=== PATIENT | female | born 2000 | race Caucasian/White ===

== ENCOUNTER 2019-01-01 11:58 | Emergency (ER) | payer SELFPAY ==
[~2019-01-01] VITALS: Ht 170.2 cm; Wt 99.8 kg
--- NOTE | 2019-01-01 12:17 | ED GU-Female ---
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 PT STATES SHE GOES THROUGH 1-2 PAD PER DAY. PT STATES SHE STOPPED TAKING HER CONTROL 2 MONTHS AGO DUE TO LACK OF INSURANCE. PT DENIES EVER HAVING A PAP SMEAR OR APPOINTMENT WITH AN OBGYN. PT UNSURE IF SHE IS AND IS SEXUALLY ACTIVE. Source: patient Exam Limitations: no limitations History of Present Illness Date Seen by Provider: Jan 01, 2019 Time Seen by Provider: 12:13 Initial Comments To ER by private vehicle with reports of vaginal bleeding for 3 months. She uses 2 pads per day. This began one month after stopping her oral control pill. She stopped that because she ran out of the prescription. She is from [facility] and intends to go back there upon discharge. She does not have any abdominal pain, cramping or other vaginal discharge. No fevers chills or dysuria. Timing/Duration: other Severity/Quality: mild Location: unknown Radiation: none Activities at Onset: none Prior Genitourinary Problems: none Associated Symptoms: denies symptoms Allergies and Home Medications Patient Home Medication List Home Medication List Reviewed: Yes Review of Systems Review of Systems Constitutional: see HPI EENTM: see HPI Respiratory: no symptoms reported Cardiovascular: no symptoms reported Genitourinary: see HPI Musculoskeletal: no symptoms reported Skin: no symptoms reported Psychiatric/Neurological: No Symptoms Reported Past Wuifsbq-Bgyvar-Peyhiu Hx Patient Social History Alcohol Use: Denies Use Recreational Drug Use: No Smoking Status: Current Everyday Smoker 2nd Hand Smoke Exposure: Yes Recent Foreign Travel: No Contact w/Someone Who Travel: No Recent Hopitalizations: No Physical Abuse: No Sexual Abuse: No Mistreated: No Fear: No Seasonal Allergies Seasonal Allergies: No Past Medical History Surgeries: No Respiratory: No Cardiac: No Neurological: No Genitourinary: No Gastrointestinal: No Musculoskeletal: No Endocrine: No HEENT: No Cancer: No Psychosocial: No Integumentary: No Physical Exam Vital Signs Vital Signs - First Documented 01/01/19 12:06 Temp 97.6 Pulse 76 Resp 18 B/P (MAP) 115/76 Capillary Refill : Height, Weight, BMI Height: 5'7.00" Weight: 220lbs. oz. 99.769723ov; 28.12 BMI Method: General Appearance: WD/WN, no apparent distress Neck: non-tender, full range of motion Respiratory: no respiratory distress, no accessory muscle use Neurologic/Psychiatric: alert, normal mood/affect, oriented x 3 Skin: normal color, warm/dry Progress/Results/Core Measures Suspected Sepsis SIRS Temperature:97.6 Pulse: Respiratory Rate: Blood Pressure / Mean: Results/Orders My Orders Orders - MAYNOR LATIF APRN Cbc With Automated Diff (01/01/19 12:12) Urine Bedside (01/01/19 12:12) Ua Culture If Indicated (01/01/19 12:12) Vital Signs/I&O 01/01/19 12:06 Temp 97.6 Pulse 76 Resp 18 B/P (MAP) 115/76 Capillary Refill : Departure Impression Primary Impression: Vaginal bleeding Disposition: HOME, SELF-CARE Condition: Stable Departure-Patient Inst. Decision time for Depature: 12:16 Referrals: NO,LOCAL PHYSICIAN (PCP) Primary Care Physician Patient Instructions: IRREGULAR VAGINAL BLEEDING Add. Discharge Instructions: 1. Follow-up with your stove mounter. All discharge instructions reviewed with patient and/or family. Voiced understanding. Scripts Norgestimate-Ethinyl Estradiol (Sprintec 28 Day Tablet) 1 Each Tablet 1 EACH PO DAILY, #1 PKT Prov: MAYNOR LATIF APRN 01/01/19 MAYNOR LATIF APRN Jan 01, 2019 12:17
[2019-01-01] MEDS ORDERED: NORG1TAB14 PO (12:19)
[2019-01-01 12:31] LABS: BASOPHILS % (AUTO) 0 % (0-10); EOSINOPHILS # (AUTO) 0.1 10^3/uL (0.0-0.3); EOSINOPHILS % (AUTO) 1 % (0-10); HEMATOCRIT 42 % (35-52); HEMOGLOBIN 14.1 G/DL (11.5-16.0); LYMPHOCYTES # (AUTO) 2.7 X 10^3 (1.0-4.0); LYMPHOCYTES % (AUTO) 42 % (12-44); MEAN CORPUSCULAR HEMOGLOBIN 29 PG (25-34); MEAN CORPUSCULAR HGB CONC 34 G/DL (32-36); MEAN CORPUSCULAR VOLUME 84 FL (80-99); MEAN PLATELET VOLUME 10.2 FL (7.4-10.4); MONOCYTES # (AUTO) 0.4 X 10^3 (0.0-1.0); MONOCYTES % (AUTO) 6 % (0-12); NEUTROPHILS # (AUTO) 3.2 X 10^3 (1.8-7.8); NEUTROPHILS % (AUTO) 50 % (42-75); PLATELET COUNT 231 10^3/uL (130-400); WHITE BLOOD COUNT 6.4 10^3/uL (4.3-11.0)
[2019-01-01 12:32] LABS: BILIRUBIN,URINE NEGATIVE (NEGATIVE); CLARITY,URINE CLEAR; COLOR,URINE YELLOW; GLUCOSE, URINE (UA) NEGATIVE (NEGATIVE); KETONES,URINE NEGATIVE (NEGATIVE); LEUKOCYTE ESTERASE ,URINE NEGATIVE (NEGATIVE); NITRITE,URINE NEGATIVE (NEGATIVE); PH,URINE 5 (5-9); PROTEIN,URINE NEGATIVE (NEGATIVE); UROBILINOGEN,URINE NORMAL (NORMAL)
[2019-01-01 12:40] LABS: BACTERIA,URINE TRACE /HPF; RBC,URINE 25-50 /HPF; WBC,URINE RARE /HPF
== END 2019-01-01 12:57 | disposition home or self-care (01) ==
LOC: ER 11:59
DX: N93.9 Abnormal uterine and vaginal bleeding, unspecified (principal); F17.200 Nicotine dependence, unspecified, uncomplicated; Z91.14 Patient's other noncompliance with medication regimen
CPT/HCPCS: 36415; 81000; 84703; 85025; 99282

== ENCOUNTER 2020-12-20 19:12 | Emergency (ER) | payer SELFPAY ==
[~2020-12-20] VITALS: Ht 167 cm; Wt 100.0 kg
[~2020-12-20 19:12] MED LIST: NORG1TAB14 PO
[2020-12-20] MEDS ORDERED: SULF1TAB38 PO (19:39)
--- NOTE | 2020-12-20 19:39 | ED Integumentary General ---
General Chief Complaint: Skin/Wound Problems Stated Complaint: R ARM SWOLLEN Nursing Triage Note: THE PT IS AMBULATORY TO THE ROOM WITHOUT DIFFICULTY. NO DISTRESS IS SEEN ON ARRIVAL. LOC IS NORMAL FOR THE PT. THE PT C/O OF AN ABSCESS UNDER HER RIGHT ARM. Source: patient Exam Limitations: no limitations (ROBERT BARRERA APRN) History of Present Illness Date Seen by Provider: Dec 20, 2020 Time Seen by Provider: 19:20 Initial Comments This is a 20 yo female who presented to ED with c/o cyst under her right axillae x3 days. Has attempted to "pop" cyst but has been unable. Reports swelling and pain. No redness, warmth, or drainage. No fever, chills, cough, nausea, vomiti ng. (ROBERT BARRERA APRN) Allergies and Home Medications Allergies Uncoded Allergies: PCN (Allergy, Unknown, 12/20/20) Home Medications Norgestimate-Ethinyl Estradiol 1 Each Tablet, 1 EACH PO DAILY Prescribed by: MAYNOR LATIF on 01/01/19 1219 Sulfamethoxazole/Trimethoprim 1 Each Tablet, 7 EACH PO BID Prescribed by: ROBERT BARRERA on 12/20/20 193 Patient Home Medication List Home Medication List Reviewed: Yes (ROBERT BARRERA APRN) Review of Systems Review of Systems Constitutional: no symptoms reported EENTM: no symptoms reported Respiratory: no symptoms reported Cardiovascular: no symptoms reported Gastrointestinal: no symptoms reported Genitourinary: no symptoms reported LMP: Nov 30, 2020 Musculoskeletal: see HPI Skin: see HPI Psychiatric/Neurological: Anxiety Endocrine: No Symptoms Reported Hematologic/Lymphatic: No Symptoms Reported (ROBERT BARRERA APRN) Past Qycxtyg-Kwhvvi-Thxrbe Hx Seasonal Allergies Seasonal Allergies: No (ROBERT BARRERA APRN) Past Medical History Surgeries: No Respiratory: No Cardiac: No Neurological: No Genitourinary: No Gastrointestinal: No Musculoskeletal: No Endocrine: No HEENT: No Cancer: No Psychosocial: No Integumentary: No (ROBERT BARRERA APRN) Physical Exam Vital Signs Vital Signs - First Documented 12/20/20 19:22 Temp 37.2 Pulse 107 Resp 18 B/P (MAP) 134/97 (109) Pulse Ox 97 (REX ALFREDO MD) Vital Signs Capillary Refill : Less Than 3 Seconds (ROBERT BARRERA [employer]S BROKERAGE MANAGER) General Appearance: WD/WN, no apparent distress HEENT: PERRL/EOMI, normal ENT inspection Neck: full range of motion, normal inspection Cardiovascular: regular rate, rhythm, no murmur Respiratory: lungs clear, normal breath sounds Gastrointestinal: normal bowel sounds, non tender, soft Extremities: normal range of motion Neurologic/Psychiatric: no motor/sensory deficits, alert, normal mood/affect, oriented x 3 Skin: normal color, warm/dry Skin Problem Location: other (right axilla) Skin Problem Character: other (6hth2pc area of induration, no fluctuance appreciated. No erythema or warmth. No discharge. ) Lymphatic: no adenopathy; No axilla node tender (R), No axilla node tender (L) (ROBERT BARRERA APRN) Progress/Results/Core Measures Results/Orders Vital Signs/I&O 12/20/20 12/20/20 19:22 19:43 Temp 37.2 Pulse 107 100 Resp 18 16 B/P (MAP) 134/97 (109) 130/90 Pulse Ox 97 99 (REX ALFREDO MD) Blood Pressure Mean: 109 Departure Impression Primary Impression: Axillary abscess Disposition: 01 HOME, SELF-CARE Condition: Stable Departure-Patient Inst. Decision time for Depature: 19:36 (ROBERT BARRERA [employer] BROKERAGE MANAGER) Referrals: NO,LOCAL PHYSICIAN (PCP) Primary Care Physician Patient Instructions: Skin Abscess Add. Discharge Instructions: Plan: 1. May use Tylenol or Ibuprofen as needed for pain. 2. Take Bactrim twice a day as directed and complete full course even if you begin to feel better. 3. Wash area twice a day with mild soap and water. Avoid shaving and using deodorant under right arm while healing. 4. Follow up with your doctor if your symptoms persist. 5. Return to ER for any new, concerning, or worsening symptoms. All discharge instructions reviewed with patient and/or family. Voiced understanding. Scripts Sulfamethoxazole/Trimethoprim (Bactrim Ds Tablet) 1 Each Tablet 7 EACH PO BID for 7 Days, #14 TAB 0 Refills Prov: ROBERT BARRERA APRN 12/20/20 ATTENDING PHYSICIAN NOTE: I was physically present as attending physician in the emergency department during the care of this patient, but I was not directly involved in the decision making or delivery of care for this patient. (REX ALFREDO MD) ROBERT BARRERA APRN Dec 20, 2020 19:39 REX ALFREDO MD Dec 22, 2020 07:36
[2020-12-20 19:43] VITALS: BP 130/90
[2020-12-20] MEDS ORDERED: TRIM/SULFAMETH 160/800 (SEPTRA DS) TAB PO ONE (19:45)
== END 2020-12-20 19:45 | disposition home or self-care (01) ==
LOC: EDUNIT# 19:12 → ER 19:15
DX: L02.411 Cutaneous abscess of right axilla (principal)
CPT/HCPCS: 99283

== ENCOUNTER 2021-11-07 18:02 | Emergency (ER) | payer MEDICAID ==
[~2021-11-07 18:02] MED LIST changes: +SULF1TAB38 PO
[2021-11-07 18:29] VITALS: BP 136/98
[2021-11-07] MEDS ORDERED: NAPR-915 PO ×2 (18:39→18:45)
[2021-11-07] MEDS ORDERED: CLIN-144 PO ×2 (18:39→18:45)
--- NOTE | 2021-11-07 18:40 | ED EENT ---
History of Present Illness General Stated Complaint: LEFT TOOTH PAIN Source: patient Exam Limitations: no limitations (MERLE VILLAR) History of Present Illness Date Seen by Provider: Nov 07, 2021 Time Seen by Provider: 18:34 Initial Comments Patient is a 21-year-old female who presents ED with left lower dental pain. She states pain started about 3 days ago. Described as a sharp pain that radiates to the left ear and left neck. She has been taking ibuprofen at home without much improvement of her pain. She states she fractured her left lower tooth a while back secondary to eating. She has had some intermittent pain periodically but not as severe as today. She denies of any facial swelling or redness, fever, sore throat, vomiting, ear pain, cough shortness of breath. She has not followed up with a dentist for this pain in the past. Patient is allergic to penicillins. (MERLE VILLAR) Allergies and Home Medications Allergies Uncoded Allergies: PCN (Allergy, Unknown, 12/20/20) Patient Home Medication List Home Medication List Reviewed: Yes (MERLE VILLAR) Clindamycin HCl (Clindamycin HCl) 300 Mg Capsule, 300 MG PO QID Prescribed by: HERMINIA BURNHAM on 11/07/211844 Naproxen (Naproxen) 500 Mg Tablet, 500 MG PO Q12H Prescribed by: HERMINIA BURNHAM on 11/07/211844 Norgestimate-Ethinyl Estradiol (Sprintec 28 Day Tablet) 1 Each Tablet, 1 EACH PO DAILY Prescribed by: MAYNOR LATIF on 01/01/19 1219 Sulfamethoxazole/Trimethoprim (Bactrim Ds Tablet) 1 Each Tablet, 7 EACH PO BID Prescribed by: ROBERT BARRERA on 12/20/20 193 Review of Systems Review of Systems Constitutional: No chills, No diaphoresis Eyes: Denies Blurred Vision, Denies Drainage, Denies Decreased Acuity Ears: Denies Dizziness, Denies Pain Nose: denies clots, denies congestion Mouth: denies clots; loose teeth, other (dental pain) Respiratory: No cough, No short of breath, No wheezing Gastrointestinal: No abdominal pain, No diarrhea, No nausea, No vomiting Musculoskeletal: No back pain, No joint pain Neurological: Denies Anxiety, Denies Depressed (MERLE VILLAR) All Other Systems Reviewed Negative Unless Noted: Yes (MERLE VILLAR) Past Retpeoa-Haamsk-Bwhqex Hx Seasonal Allergies Seasonal Allergies: No (MERLE VILLAR) Past Medical History Surgeries: No Respiratory: No Cardiac: No Neurological: No Genitourinary: No Gastrointestinal: No Musculoskeletal: No Endocrine: No HEENT: No Cancer: No Psychosocial: No Integumentary: No (MERLE VILLAR) Physical Exam Vital Signs Vital Signs - First Documented 11/07/21 18:29 Temp 36.9 Pulse 82 Resp 17 B/P (MAP) 136/98 (111) (REX ALFREDO MD) Height, Weight, BMI Height: 5'7.00" Weight: 220lbs. oz. 99.544545rp; 35.00 BMI Method: General Appearance: WD/WN, no apparent distress Eyes: bilateral eye normal inspection, bilateral eye PERRL, bilateral eye EOMI Ears: bilateral ear auricle normal, bilateral ear canal normal, bilateral ear TM normal Nose: normal inspection Mouth/Throat: normal mouth inspection, pharynx normal, dental tenderness, other (Left lower second molar tenderness with decay. Gum swelling erythema without functional mass. Several teeth with decay and cavities.) Neck: non-tender, full range of motion, supple, normal inspection Cardiovascular: regular rate, rhythm, no edema, no gallop, no JVD Respiratory: chest non-tender, lungs clear, normal breath sounds, no respirato ry distress, no accessory muscle use Gastrointestinal: normal bowel sounds, non tender, soft Neurologic/Psychiatric: childcare administrator II-XII nml as tested, no motor/sensory deficits, alert, normal mood/affect Skin: normal color, warm/dry (MERLE VILLAR) Departure Communication (PCP) Patient with left lower dental second molar with decay tenderness with gum swelling erythema. Extensive decay throughout. No obvious functional mass. No facial swelling or redness. Exam otherwise benign. Stable vital signs. Patient Will discharge with clindamycin and naproxen. Recommend dental outpatient follow-up. If any worsening symptoms such as redness, swelling to face return back to ED for further evaluation (MERLE VILLAR) Impression Primary Impression: Toothache Disposition: 01 HOME, SELF-CARE Condition: Stable Departure-Patient Inst. Decision time for Depature: 18:37 (MERLE VILLAR) Referrals: [facility],LOCAL PHYSICIAN (PCP) Primary Care Physician Patient Instructions: Dental Pain Add. Discharge Instructions: Need to follow-up with a dentist. Recommend eating food with clindamycin. If any swelling or redness of the face without improvement of the antibiotics return back to ED. May consider probiotic with antibiotic Scripts Naproxen (Naproxen) 500 Mg Tablet 500 MG PO Q12H for 10 Days, #20 TAB Prov: MERLE VILLAR 11/07/21 Clindamycin HCl (Clindamycin HCl) 300 Mg Capsule 300 MG PO QID for 7 Days, #28 CAP Prov: MERLE VILLAR 11/07/21 ATTENDING PHYSICIAN NOTE: I was physically present as attending physician in the emergency department during the care of this patient, but I was not directly involved in the decision making or delivery of care for this patient. (REX ALFREDO MD) MERLE VILLAR Nov 07, 2021 18:40 REX ALFREDO MD Nov 08, 2021 07:33
== END 2021-11-07 18:50 | disposition home or self-care (01) ==
LOC: EDUNIT# 18:02 → ER 18:08
DX: K02.9 Dental caries, unspecified (principal); Z88.0 Allergy status to penicillin
CPT/HCPCS: 99282

== ENCOUNTER 2022-07-15 20:58 | Emergency (ER) | payer MEDICAID ==
[~2022-07-15] VITALS: Ht 162 cm; Wt 119.0 kg
[~2022-07-15 20:58] MED LIST changes: +CLIN-144 PO; +NAPR-915 PO
--- NOTE | 2022-07-15 21:26 | ED Respiratory ---
General Chief Complaint: Respiratory Problems Stated Complaint: SOA Source: patient Exam Limitations: no limitations History of Present Illness Date Seen by Provider: Jul 15, 2022 Time Seen by Provider: 21:22 Initial Comments Patient is a 22-year-old female with a history of hypertension and anxiety presents ED with shortness of breath who presents the ED with shortness of breath, throat pain. She states around 8:00 yesterday she ate shrimp. About 15 minutes later she started having throat pain, difficulty breathing and shortness of breath. She went in the [facility] ER was given Benadryl and steroids with improvement of her symptoms. She woke up this morning with similar symptoms. She has been using her albuterol inhaler several times for the shortness of breath. She denies of any wheezing, chest pain, abdominal pain. She reports coughing up mucus. She is concerned she still having allergic reaction secondary to the shrimp. Denies history of allergy to seafood. She denies of any tongue swelling, headache, dizziness, recent upper respiratory infection. She also reports increased urine frequency. patient states her last menstrual cycle was in February. She is currently on control. Denies of any recent travels or surgeries. Denies any leg pain. No known cardiac history. History of asthma is the reason why she has an inhaler. Allergies and Home Medications Allergies Uncoded Allergies: PCN (Allergy, Unknown, 12/20/20) Patient Home Medication List Home Medication List Reviewed: Yes Clindamycin HCl (Clindamycin HCl) 300 Mg Capsule, 300 MG PO QID Prescribed by: HERMINIA BURNHAM on 11/07/211844 Epinephrine (Epipen) 0.3 Mg/0.3 Ml Auto.injct, 0.3 MG IJ ONCE Prescribed by: HERMINIA BURNHAM on 07/15/222238 Naproxen (Naproxen) 500 Mg Tablet, 500 MG PO Q12H Prescribed by: HERMINIA BURNHAM on 11/07/21 184 Norgestimate-Ethinyl Estradiol (Sprintec 28 Day Tablet) 1 Each Tablet, 1 EACH PO DAILY Prescribed by: MAYNOR LATIF on 01/01/19 1219 Sulfamethoxazole/Trimethoprim (Bactrim Ds Tablet) 1 Each Tablet, 7 EACH PO BID Prescribed by: ROBERT BARRERA on 12/20/201938 Review of Systems Review of Systems Constitutional: No chills, No diaphoresis, No malaise, No weakness EENTM: throat pain; No ear pain, No blurred vision, No double vision, No throat swelling Respiratory: cough, short of breath; No stridor, No wheezing Cardiovascular: No chest pain, No vascular heart diseas Gastrointestinal: No abdominal pain, No diarrhea, No nausea, No vomiting Genitourinary: No decreased output; frequency; No hematuria Musculoskeletal: No back pain, No joint pain Skin: No change in color, No change in hair/nails Psychiatric/Neurological: Anxiety Hematologic/Lymphatic: Denies Anemia All Other Systems Reviewed Negative Unless Noted: Yes Past Jboenuz-Fcvzqv-Vsczfp Hx Immunizations Up To Date First/Initial COVID19 Vaccinat: 2020 Second COVID19 Vaccination Lobo: 2020 Seasonal Allergies Seasonal Allergies: No Past Medical History Surgery/Hospitalization HX: HTN, DEPRESSION, ANXIETY, PTSD, Surgeries: No Respiratory: No Cardiac: No Neurological: No Genitourinary: No Gastrointestinal: No Musculoskeletal: No Endocrine: No HEENT: No Cancer: No Psychosocial: No Integumentary: No Physical Exam Vital Signs - First Documented 07/15/22 21:03 Temp 36.8 Pulse 110 Resp 18 B/P (MAP) 138/95 (109) Pulse Ox 97 O2 Delivery Room Air Capillary Refill : Height: 5'7.00" Weight: 220lbs. oz. 99.942265wj; 35.00 BMI Method: General Appearance: WD/WN, no apparent distress Eyes: Bilateral Eye Normal Inspection, Bilateral Eye PERRL, Bilateral Eye Abnormal EOM HEENT: PERRL/EOMI, normal ENT inspection, TMs normal, pharynx normal Neck: non-tender, full range of motion, supple, normal inspection Respiratory: lungs clear, normal breath sounds, no respiratory distress, no accessory muscle use Cardiovascular: no edema, no gallop, no JVD, tachycardia Extremities: normal range of motion, non-tender, normal inspection Neurologic/Psychiatric: route specialist II-XII nml as tested, no motor/sensory deficits, alert, normal mood/affect, oriented x 3 Skin: normal color, warm/dry Progress/Results/Core Measures Suspected Sepsis SIRS Temperature: Pulse: Respiratory Rate: Laboratory Tests 07/15/22 21:21: White Blood Count 15.4H Blood Pressure / Mean: Laboratory Tests 07/15/22 21:21: Creatinine 0.70, Platelet Count 331, Total Bilirubin 0.2 Results/Orders Lab Results Laboratory Tests Test 07/15/22 21:21 07/15/22 21:37 Range/Units White Blood Count 15.4 H 4.3-11.0 10^3/uL Red Blood Count 5.04 3.80-5.11 10^6/uL Hemoglobin 13.8 11.5-16.0 g/dL Hematocrit 42 35-52 % Mean Corpuscular Volume 83 80-99 fL Mean Corpuscular Hemoglobin 27 25-34 pg Mean Corpuscular Hemoglobin Concent 33 32-36 g/dL Red Cell Distribution Width 14.6 H 10.0-14.5 % Platelet Count 331 130-400 10^3/uL Mean Platelet Volume 9.8 9.0-12.2 fL Immature Granulocyte % (Auto) 1 % Neutrophils (%) (Auto) 63 42-75 % Lymphocytes (%) (Auto) 29 12-44 % Monocytes (%) (Auto) 7 0-12 % Eosinophils (%) (Auto) 0 0-10 % Basophils (%) (Auto) 0 0-10 % Neutrophils # (Auto) 9.7 H 1.8-7.8 10^3/uL Lymphocytes # (Auto) 4.4 H 1.0-4.0 10^3/uL Monocytes # (Auto) 1.1 H 0.0-1.0 10^3/uL Eosinophils # (Auto) 0.0 0.0-0.3 10^3/uL Basophils # (Auto) 0.0 0.0-0.1 10^3/uL Immature Granulocyte # (Auto) 0.1 0.0-0.1 10^3/uL Neutrophils % (Manual) 60 % Lymphocytes % (Manual) 32 % Monocytes % (Manual) 8 % Blood Morphology Comment NORMAL Sodium Level 141 135-145 MMOL/L Potassium Level 3.0 L 3.6-5.0 MMOL/L Chloride Level 107 98-107 MMOL/L Carbon Dioxide Level 19 L 21-32 MMOL/L Anion Gap 15 H 5-14 MMOL/L Blood Urea Nitrogen 10 7-18 MG/DL Creatinine 0.70 0.60-1.30 MG/DL Estimat Glomerular Filtration Rate 125 BUN/Creatinine Ratio 14 Glucose Level 137 H 70-105 MG/DL Calcium Level 9.5 8.5-10.1 MG/DL Corrected Calcium 9.6 8.5-10.1 MG/DL Total Bilirubin 0.2 0.1-1.0 MG/DL Aspartate Amino Transf (AST/SGOT) 11 5-34 U/L Alanine Aminotransferase (ALT/SGPT) 16 0-55 U/L Alkaline Phosphatase 39 L 40-136 U/L Total Protein 7.4 6.4-8.2 GM/DL Albumin 3.9 3.2-4.5 GM/DL Urine Color YELLOW Urine Clarity CLEAR Urine pH 6.0 5-9 Urine Specific [place] >=1.030 1.016-1.022 Urine Protein TRACE H NEGATIVE Urine Glucose (UA) NEGATIVE NEGATIVE Urine Ketones NEGATIVE NEGATIVE Urine Nitrite NEGATIVE NEGATIVE Urine Bilirubin NEGATIVE NEGATIVE Urine Urobilinogen 0.2 < = 1.0 MG/DL Urine Leukocyte Esterase NEGATIVE NEGATIVE Urine RBC (Auto) NEGATIVE NEGATIVE Urine RBC NONE /HPF Urine WBC NONE /HPF Urine Squamous Epithelial Cells 0-2 /HPF Urine Crystals PRESENT H /LPF Urine Amorphous Sediment FEW BRIANNA URATES H /LPF Urine Bacteria TRACE /HPF Urine Casts NONE /LPF Urine Mucus SMALL H /LPF Urine Culture Indicated NO My Orders Orders - MERLE VILLAR PA Cbc With Automated Diff (07/15/22 21:20) Comprehensive Metabolic Panel (07/15/22 21:20) Chest 1 View, Ap/Pa Only (07/15/22 21:20) Prednisone Tablet (Deltasone Tablet) (07/15/22 21:30) Diphenhydramine Tablet (Benadryl Tablet) (07/15/22 21:30) Urinalysis (07/15/22 21:27) Manual Differential (07/15/22 21:21) Potassium Chloride (Tablet) (K Dur Table (07/15/22 22:45) Medications Given in ED Current Medications Medications Dose Ordered Sig/Johnathon Route Start Time Stop Time Status Last Admin Dose Admin Diphenhydramine HCl 25 mg ONCE ONCE PO 07/15/22 21:30 07/15/22 21:31 DC 07/15/22 21:33 25 MG Prednisone 50 mg ONCE ONCE PO 07/15/22 21:30 07/15/22 21:31 DC 07/15/22 21:33 50 MG Vital Signs/I&O 07/15/22 21:03 Temp 36.8 Pulse 110 Resp 18 B/P (MAP) 138/95 (109) Pulse Ox 97 O2 Delivery Room Air Capillary Refill : Departure Communication (PCP) Patient had a allergic reaction yesterday evening after eating shrimp. Patient received prednisone and Benadryl at the [facility] ER yesterday with improvement. Continues symptoms today. On arrival no stridor, rash. Talking complete sentences. She was tachycardic but she used her albuterol inhaler near 20 times today for the shortness of breath. No wheezing noted. No current chest pain or abdominal pain. Due to her current complaints and relief with prednisone and Benadryl yesterday for allergic reaction she was given a dose of prednisone and Benadryl here. Improvement of her symptoms. General lab work was ordered CBC, CMP, chest x-ray for the shortness of breath. CBC showed a white blood count of 15. This is nonspecific but could be related to inflammatory response versus prednisone. She denies feeling sick prior. Urinalysis was negative for infection. CMP showed a hypokalemia at 3.0. She received oral potassium 20meq. History of hypokalemia, according to patient. This could be associated to the albuterol. Patient states symptoms were improving here. discussed discharge with prednisone and Benadryl. She states the prednisone made her stomach upset and she does not want to take the steroid. Discussed continue with the Benadry l. Provided EpiPen. Return precautions were discussed with patient. Discussed allergy for shrimp, possible seafood. Impression Primary Impression: Allergic reaction Disposition: 01 HOME, SELF-CARE Condition: Stable Departure-Patient Inst. Decision time for Depature: 22:34 Referrals: [facility] NO,LOCAL PHYSICIAN (PCP) Primary Care Physician Patient Instructions: Shortness of Breath (Dyspnea) Scripts Epinephrine (Epipen) 0.3 Mg/0.3 Ml Auto.injct 0.3 MG IJ ONCE, #1 ML Prov: MERLE VILLAR 07/15/22 MERLE VILLAR Jul 15, 2022 21:26
[2022-07-15] MEDS ORDERED: predniSONE 20 MG TAB PO ONE (21:30)
[2022-07-15] MEDS ORDERED: diphenhydrAMINE 25 MG TAB (BENADRYL) PO ONE (21:30)
[2022-07-15 21:36] LABS: BASOPHILS % (AUTO) 0 % (0-10); EOSINOPHILS % (AUTO) 0 % (0-10); HEMATOCRIT 42 % (35-52); HEMOGLOBIN 13.8 g/dL (11.5-16.0); LYMPHOCYTES # (AUTO) 4.4 10^3/uL (1.0-4.0); LYMPHOCYTES % (AUTO) 29 % (12-44); MEAN CORPUSCULAR HEMOGLOBIN 27 pg (25-34); MEAN CORPUSCULAR HGB CONC 33 g/dL (32-36); MEAN CORPUSCULAR VOLUME 83 fL (80-99); MEAN PLATELET VOLUME 9.8 fL (9.0-12.2); MONOCYTES # (AUTO) 1.1 10^3/uL (0.0-1.0); MONOCYTES % (AUTO) 7 % (0-12); NEUTROPHILS # (AUTO) 9.7 10^3/uL (1.8-7.8); NEUTROPHILS % (AUTO) 63 % (42-75); PLATELET COUNT 331 10^3/uL (130-400); WHITE BLOOD COUNT 15.4 10^3/uL (4.3-11.0)
[2022-07-15 21:43] LABS: BILIRUBIN,URINE NEGATIVE (NEGATIVE); CLARITY,URINE CLEAR; COLOR,URINE YELLOW; GLUCOSE, URINE (UA) NEGATIVE (NEGATIVE); KETONES,URINE NEGATIVE (NEGATIVE); LEUKOCYTE ESTERASE ,URINE NEGATIVE (NEGATIVE); NITRITE,URINE NEGATIVE (NEGATIVE); PROTEIN,URINE TRACE (NEGATIVE)
--- NOTE | 2022-07-15 21:48 | Diagnostic Imaging Report ---
EXAM: CHEST 1 VIEW, AP/PA ONLY INDICATION: Shortness of breath. COMPARISON: None. FINDINGS: Normal heart size and central pulmonary vascularity. No focal pulmonary opacity. No pleural effusion or pneumothorax. No acute osseous findings. IMPRESSION: No acute cardiopulmonary findings. Dictated by: Dictated on workstation # [id number]
[2022-07-15 21:52] LABS: ALBUMIN 3.9 GM/DL (3.2-4.5)
[2022-07-15 21:53] LABS: AMORPHOUS SEDIMENT,UR FEW AMOR URATES /LPF; BACTERIA,URINE TRACE /HPF; SQUAMOUS EPITHELIAL CELL,UR 0-2 /HPF
[2022-07-15 21:54] LABS: CALCIUM 9.5 MG/DL (8.5-10.1)
[2022-07-15 21:55] LABS: TOTAL PROTEIN 7.4 GM/DL (6.4-8.2)
[2022-07-15 21:57] LABS: BILIRUBIN,TOTAL 0.2 MG/DL (0.1-1.0); LYMPHOCYTES % (MANUAL) 32 %; MONOCYTES % (MANUAL) 8 %; NEUTROPHILS % (MANUAL) 60 %; RBC MORPH NORMAL
[2022-07-15 21:59] LABS: CREATININE SERUM 0.7 MG/DL (0.60-1.30)
[2022-07-15] MEDS ORDERED: EPIN0.3P2 IJ (22:39)
[2022-07-15] MEDS ORDERED: KCL 20 MEQ TAB (K-DUR) PO ONE (22:45)
[2022-07-15 22:55] VITALS: BP 146/81
== END 2022-07-15 22:55 | disposition home or self-care (01) ==
LOC: EDUNIT# 20:58 → ER 21:00
DX: T78.1XXA Other adverse food reactions, not elsewhere classified, initial encounter (principal); E87.6 Hypokalemia; R06.02 Shortness of breath; R00.0 Tachycardia, unspecified
CPT/HCPCS: 36415; 71045; 80053; 81000; 85007; 85027

== ENCOUNTER 2023-02-18 21:03 | Emergency (ER) | payer MEDICAID ==
[~2023-02-18] VITALS: Ht 165 cm; Wt 129.3 kg
[~2023-02-18 21:03] MED LIST changes: +EPIN0.3P2 IJ
--- NOTE | 2023-02-18 21:47 | ED Lower Extremity ---
General Chief Complaint: Lower Extremity Stated Complaint: LEG PAIN, CRAMPING IN BOTH, BRUISE ON LT CALF Nursing Triage Note: C/O BILATERAL STABBING LEG PAIN X2 DAYS. SEEN AT [facility] FOR SAME. DENIES INJURY Source: patient Exam Limitations: no limitations History of Present Illness Date Seen by Provider: Feb 18, 2023 Time Seen by Provider: 21:43 Initial Comments Patient is a 23-year-old female who presents ED with bilateral leg pain. This pain started 2 days ago. Pain radiates down and up. Reports bilateral leg cramping. Pain is described as more as discomfort. Seems to be worse when she ambulates. She denies of any swelling or redness. She did notice a small little area of bruising to the left matos. She denies of any injuries. She has had some numbness and tingling during her stay here. She states she was seen at the [facility] ER yesterday and was recommended Tylenol and ibuprofen and to continue walking. Patient denies of any urinary symptoms, back pain, nausea. She does report diarrhea over the past 3 days. She denies history of vitamin deficiency, diabetes, autoimmune diseases, vascular disease. She denies of any recent travels or surgeries. Denies control. Patient [place] any fever, chills, body aches, headache, dizziness, chest pain, shortness of breath or cough Allergies and Home Medications Allergies Coded Allergies: aspirin (Verified Allergy, Unknown, 02/18/23) shrimp (Verified Allergy, Unknown, 02/18/23) Uncoded Allergies: PCN (Allergy, Unknown, 12/20/20) Patient Home Medication List Home Medication List Reviewed: Yes Clindamycin HCl (Clindamycin HCl) 300 Mg Capsule, 300 MG PO QID Prescribed by: HERMINIA BURNHAM on 11/07/21 184 Epinephrine (Epipen) 0.3 Mg/0.3 Ml Auto.injct, 0.3 MG IJ ONCE Prescribed by: HERMINIA BURNHAM on 07/15/22 223 Methocarbamol (Methocarbamol) 500 Mg Tablet, 500 MG PO Q6-8HR Prescribed by: HERMINIA BURNHAM on 02/18/23 222 Naproxen (Naproxen) 500 Mg Tablet, 500 MG PO Q12H Prescribed by: HERMINIA BURNHAM on 11/07/21 1845 Norgestimate-Ethinyl Estradiol (Sprintec 28 Day Tablet) 1 Each Tablet, 1 EACH PO DAILY Prescribed by: MAYNOR LATIF on 01/01/19 1219 Sulfamethoxazole/Trimethoprim (Bactrim Ds Tablet) 1 Each Tablet, 7 EACH PO BID Prescribed by: ROBERT BARRERA on 12/20/20 193 Review of Systems Constitutional: No chills, No diaphoresis EENTM: No ear pain, No blurred vision, No double vision Respiratory: No cough, No dyspnea on exertion Cardiovascular: No chest pain Gastrointestinal: No abdominal pain, No constipation, No diarrhea, No nausea, No vomiting Genitourinary: No decreased output, No discharge Musculoskeletal: No back pain, No joint pain; muscle pain Skin: change in color; No change in hair/nails Past Fmejcls-Hpyjpv-Jujctg Hx Patient Social History Tobacco Use?: Yes Substance use?: No Alcohol Use?: No Pt feels they are or have been: No Immunizations Up To Date First/Initial COVID19 Vaccinat: 2020 Second COVID19 Vaccination Lobo: 2020 Third COVID19 Vaccination Date: 2020 Seasonal Allergies Seasonal Allergies: No Past Medical History Surgery/Hospitalization HX: HTN, DEPRESSION, ANXIETY, PTSD, CHOLECYSTECTOMY Surgeries: No Respiratory: No Cardiac: No Neurological: No Last Menstrual Period: Feb 18, 2023 Genitourinary: No Gastrointestinal: No Musculoskeletal: No Endocrine: No HEENT: No Cancer: No Psychosocial: No Integumentary: No Physical Exam Vital Signs Vital Signs - First Documented 02/18/23 21:13 Temp 36.6 Pulse 78 Resp 16 B/P (MAP) 128/92 (104) Pulse Ox 99 O2 Delivery Room Air Capillary Refill : Less Than 3 Seconds Height, Weight, BMI Height: 5'7.00" Weight: 220lbs. oz. 99.077345dv; 47.00 BMI Method: General Appearance: WD/WN, no apparent distress HEENT: PERRL/EOMI, normal ENT inspection, TMs normal, pharynx normal Neck: non-tender, full range of motion, supple Cardiovascular: regular rate, rhythm, no edema, no gallop, no JVD Respiratory: chest non-tender, lungs clear, normal breath sounds, no respiratory distress, no accessory muscle use Gastrointestinal: normal bowel sounds, non tender, soft, no organomegaly Back: normal inspection, no CVA tenderness Legs: bilateral leg normal inspection, bilateral leg normal range of motion, bilateral leg other (Bilateral thigh, calf tenderness. Very small area of bruising left lateral matos. Neurovascular intact cap refill less than 2. Dors parish pedis +2, posterior tibialis +2. Normal active range of motion lower extremities. 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, no motor/sensory deficits, alert, normal mood/affect, oriented x 3 Skin: normal color Lymphatic: no adenopathy Progress/Results/Core Measures Results/Orders Lab Results Laboratory Tests Test 02/18/23 21:50 Range/Units White Blood Count 9.4 4.3-11.0 10^3/uL Red Blood Count 4.68 3.80-5.11 10^6/uL Hemoglobin 12.9 11.5-16.0 g/dL Hematocrit 40 35-52 % Mean Corpuscular Volume 85 80-99 fL Mean Corpuscular Hemoglobin 28 25-34 pg Mean Corpuscular Hemoglobin Concent 33 32-36 g/dL Red Cell Distribution Width 13.3 10.0-14.5 % Platelet Count 266 130-400 10^3/uL Mean Platelet Volume 10.3 9.0-12.2 fL Immature Granulocyte % (Auto) 0 % Neutrophils (%) (Auto) 50 42-75 % Lymphocytes (%) (Auto) 41 12-44 % Monocytes (%) (Auto) 7 0-12 % Eosinophils (%) (Auto) 1 0-10 % Basophils (%) (Auto) 0 0-10 % Neutrophils # (Auto) 4.7 1.8-7.8 10^3/uL Lymphocytes # (Auto) 3.8 1.0-4.0 10^3/uL Monocytes # (Auto) 0.7 0.0-1.0 10^3/uL Eosinophils # (Auto) 0.1 0.0-0.3 10^3/uL Basophils # (Auto) 0.0 0.0-0.1 10^3/uL Immature Granulocyte # (Auto) 0.0 0.0-0.1 10^3/uL Erythrocyte Sedimentation Rate 13 0-20 MM/HR Sodium Level 140 135-145 MMOL/L Potassium Level 4.0 3.6-5.0 MMOL/L Chloride Level 108 H 98-107 MMOL/L Carbon Dioxide Level 21 21-32 MMOL/L Anion Gap 11 5-14 MMOL/L Blood Urea Nitrogen 11 7-18 MG/DL Creatinine 0.80 0.60-1.30 MG/DL Estimat Glomerular Filtration Rate 105 BUN/Creatinine Ratio 14 Glucose Level 88 70-105 MG/DL Calcium Level 9.4 8.5-10.1 MG/DL Corrected Calcium 9.5 8.5-10.1 MG/DL Magnesium Level 2.0 1.6-2.4 MG/DL Total Bilirubin 0.2 0.1-1.0 MG/DL Aspartate Amino Transf (AST/SGOT) 22 5-34 U/L Alanine Aminotransferase (ALT/SGPT) 28 0-55 U/L Alkaline Phosphatase 45 40-136 U/L C-Reactive Protein High Sensitivity 0.72 H 0.00-0.50 MG/DL Total Protein 6.9 6.4-8.2 GM/DL Albumin 3.9 3.2-4.5 GM/DL Thyroid Stimulating Hormone (TSH) 1.22 0.35-4.94 UIU/ML My Orders Orders - MERLE VILLAR Cbc And Automated Diff (02/18/23 21:42) Comprehensive Metabolic Panel (02/18/23 21:42) Magnesium (02/18/23 21:42) Thyroid Stimulating Hormone (02/18/23 21:42) Erythrocyte Sedimentation Rate (02/18/23 21:42) Hs C Reactive Protein (02/18/23 21:42) Vital Signs/I&O 02/18/23 21:13 Temp 36.6 Pulse 78 Resp 16 B/P (MAP) 128/92 (104) Pulse Ox 99 O2 Delivery Room Air Blood Pressure Mean: 104 Departure Communication (PCP) With bilateral leg pain. No specific injury. No recent travels or surgeries. Has been on control in the past none currently. She has diffuse pain throughout the lower extremities on palpation. Neurovascular intact. Cap refill less than 2. Normal range of motion. No back pain. Patient able to ambulate with a steady gait. No evidence of cellulitis. No skin lesions. Very small bruising to the mid lateral matos of the left leg. No evidence of swelling. she also reports cramping in her legs. Pain is worse with walking. CBC, CMP, mag, TSH and ESR was ordered. She denies of any recent tick bites. No recent flulike symptoms. Differential diagnosis leg cramp, vitamin deficiency, electrolyte abnormality, autoimmune disease, vasculitis. Patient CBC was grossly unremarkable. CMP was grossly markable. Normal blood sugar. TSH normal. ESR CRP within normal limits. No evidence suggesting electrolyte abnormality. Does not appear inflammatory. Would not suspect DVT being bilateral. Clinically does not appear to be a DVT. vascular appears to be intact. At this time suggest taking magnesium, vitamins, muscle relaxer. Recommend stretching and staying hydrated. Recommend follow-up your PCP in 3 to 4 days for reevaluation. If any worsening symptoms such as skin color changes, loss of motor function return back to ED.\\ Impression Primary Impression: Leg pain, bilateral Disposition: 01 HOME, SELF-CARE Condition: Stable Departure-Patient Inst. Decision time for Depature: 22:18 Referrals: CHARIS EDWARDS APRN (PCP/Family) Primary Care Physician Patient Instructions: Passive Range of Motion Exercises, Legs, Hips, Knees, and Ankles Add. Discharge Instructions: Recommend taking vitamins that consist of B1, B12 and vitamin D. May consider oral magnesium daily. Provided muscle relaxant to take as well. May try compression socks. Elevate legs at night. Follow-up your PCP in 2 to 3 days for reevaluation All discharge instructions reviewed with patient and/or family. Voiced understanding. Scripts Methocarbamol (Methocarbamol) 500 Mg Tablet 500 MG PO Q6-8HR for Muscle Cramps, #16 TAB Prov: MERLE VILLAR 02/18/23 MERLE VILLAR Feb 18, 2023 21:47
[2023-02-18 22:02] LABS: BASOPHILS % (AUTO) 0 % (0-10); EOSINOPHILS # (AUTO) 0.1 10^3/uL (0.0-0.3); EOSINOPHILS % (AUTO) 1 % (0-10); HEMATOCRIT 40 % (35-52); HEMOGLOBIN 12.9 g/dL (11.5-16.0); LYMPHOCYTES # (AUTO) 3.8 10^3/uL (1.0-4.0); LYMPHOCYTES % (AUTO) 41 % (12-44); MEAN CORPUSCULAR HEMOGLOBIN 28 pg (25-34); MEAN CORPUSCULAR HGB CONC 33 g/dL (32-36); MEAN CORPUSCULAR VOLUME 85 fL (80-99); MEAN PLATELET VOLUME 10.3 fL (9.0-12.2); MONOCYTES # (AUTO) 0.7 10^3/uL (0.0-1.0); MONOCYTES % (AUTO) 7 % (0-12); NEUTROPHILS # (AUTO) 4.7 10^3/uL (1.8-7.8); NEUTROPHILS % (AUTO) 50 % (42-75); PLATELET COUNT 266 10^3/uL (130-400); WHITE BLOOD COUNT 9.4 10^3/uL (4.3-11.0)
[2023-02-18 22:07] LABS: ALBUMIN 3.9 GM/DL (3.2-4.5)
[2023-02-18 22:08] LABS: CALCIUM 9.4 MG/DL (8.5-10.1)
[2023-02-18 22:09] LABS: TOTAL PROTEIN 6.9 GM/DL (6.4-8.2)
[2023-02-18 22:11] LABS: BILIRUBIN,TOTAL 0.2 MG/DL (0.1-1.0)
[2023-02-18 22:13] LABS: CREATININE SERUM 0.8 MG/DL (0.60-1.30)
[2023-02-18] MEDS ORDERED: METH-731 PO (22:21)
[2023-02-18 22:32] LABS: ERYTHROCYTE SEDIMENTATION RATE 13 MM/HR (0-20)
[2023-02-18 22:39] VITALS: BP 124/89
== END 2023-02-18 22:41 | disposition home or self-care (01) ==
LOC: EDUNIT# 21:03 → ER 21:09
DX: S80.12XA Contusion of left lower leg, initial encounter (principal); M79.661 Pain in right lower leg; M79.651 Pain in right thigh; X58.XXXA Exposure to other specified factors, initial encounter
CPT/HCPCS: 36415; 80053; 83735; 84443; 85025; 85652; 86141